=== PATIENT | female | born 1995 | race Caucasian/White ===

== ENCOUNTER 2017-02-20 14:15 | Emergency (ER) | payer OTHER ==
[2017-02-20 16:32] VITALS: BP 106/70
[2017-02-20] MEDS: NS 0.9% 1000 ML* 2,000 ML IV ONE (17:47)
[2017-02-20 18:00] LABS: Hematocrit 35 % (35-47); Hemoglobin 11.2 g/dl (12.0-16.0); Mean Corpuscular HGB Conc 32 g/dl (31-36); Mean Corpuscular Hemoglobin 27 pg (27-31); Mean Corpuscular Volume 85 fL (80-97); Mean Platelet Volume 8 um3 (7.4-10.4); Red Blood Count 4.16 10^6/ul (4.0-5.4); Red Cell Distribution Width 15 % (10.5-15); White Blood Count 12.3 10^3/ul (3.5-10.8)
[2017-02-20 18:10] LABS: ALT 12 U/L (7-52); AST 14 U/L (13-39); Albumin 3.6 g/dL (3.2-5.2); Alkaline Phosphatase 76 U/L (34-104); Anion Gap 6 mmol/L (2-11); BUN/Creatinine Ratio 10.8 (8-20); Blood Urea Nitrogen 8 mg/dL (6-24); C Reactive Protein 82.42 mg/L (< 5.00); CO2 Carbon Dioxide 28 mmol/L (22-32); Calcium 8.8 mg/dL (8.6-10.3); Chloride 103 mmol/L (101-111); EGFR Non-African American 101.1 (>60); Globulin 3.4 g/dL (2-4); Glucose 94 mg/dL (70-100); Potassium 4.1 mmol/L (3.5-5.0); Sodium 137 mmol/L (133-145)
[2017-02-20] MEDS ORDERED: Amoxicillin/Clavulanate TAB* 875 MG PO ONE ×2 (19:41→19:42)
[2017-02-20] MEDS ORDERED: cefTRIAXone(*) 1 GM in NS 0.9% 50 ML* 50 ML IVPB ONE (19:41)
[2017-02-20] MEDS ORDERED: Acetaminophen TAB* 325 MG PO ONE (19:41)
[2017-02-20 19:46] LABS: TSH (Thyroid Stimulating Horm) 1.59 mcIU/mL (0.34-5.60)
--- NOTE | 2017-02-20 19:56 | ED ---
Steph Jung Erika, scribed for Syed Wei MD on 02/20/17 at 1702 . Dizziness - HPI Summary HPI Summary: Patient is a 21-year-old female presenting to the ED with a CC of lightheadedness. Patient reports that she developed intermittent fevers, chills , fatigue, and headache on 02/17/2017. She describes the headache as dull and a 4/10, and states it is located diffusely. Patient reports that she has intermittently felt lightheaded, and states she has sometimes been unable to focus her vision. Patient states that dizziness is worse at night. She reports fever has been improving with Tylenol, which she most recently took at noon today. She notes she has been drinking well, and does not believe she is dehydrated. Patient denies nasal discharge, ear ache, sore throat, sinus pressure, cough, chest congestion, neck pain, nausea, abdominal pain, diarrhea, and urinary symptoms. Patient reports that she was sent to the ED from [facility] because her heart rate increased when she stood up. LNMP 02/02/2017. Pt denies vaginal discharge, and states she is not worried about STIs. She also denies rashes or known tick bites. Pt takes citalopram. - History Of Current Complaint Chief Complaint: EDGeneral Stated Complaint: FEVER , Time Seen by Provider: 02/20/17 16:51 Hx Obtained From: Patient Onset/Duration: Still Present Timing: Intermittent Episode Lasting - minutes Severity Currently: Mild Character: Lightheaded Associated Signs And Symptoms: Positive: Visual Changes, Fever, Chills, Other: - fatigue, headache. Negative: Nausea, Vomiting, Diarrhea - Allergies/Home Medications Allergies/Adverse Reactions: Allergies Allergy/AdvReac Type Severity Reaction Status Date / Time Lactose Allergy GI Upset Verified 02/20/17 17:48 PMH/Surg Hx/FS Hx/Imm Hx Endocrine/Hematology History: Denies: Hx Diabetes Cardiovascular History: Denies: Hx Hypertension Infectious Disease History: No Infectious Disease History: Denies: Traveled Outside the [place] in Last 30 Days - Family History Known Family History: Positive: Hypertension, Diabetes - Social History Occupation: Student Lives: With Family Alcohol Use: None Hx Substance Use: No Substance Use Type: Reports: None Hx Tobacco Use: No Smoking Status (MU): Never Smoked Tobacco Review of Systems Positive: Fever, Chills, Fatigue Positive: Blurred Vision Negative: Sore Throat, Ear Ache, Nasal Discharge Negative: Cough Negative: Abdominal Pain, Diarrhea, Nausea Negative: dysuria, discharge, frequency Negative: Rash Neurological: Other - lightheadedness Positive: Headache All Other Systems Reviewed And Are Negative: Yes Physical Exam Triage Information Reviewed: Yes Vital Signs On Initial Exam: Initial Vitals Temp Pulse Resp BP Pulse Ox 98.2 F 111 20 114/57 98 02/20/17 14:24 02/20/17 14:24 02/20/17 14:24 02/20/17 14:24 02/20/17 14:24 Vital Signs Reviewed: Yes Appearance: Positive: Well-Appearing, No Pain Distress Skin: Positive: Warm, Skin Color Reflects Adequate Perfusion, Dry Head/Face: Positive: Normal Head/Face Inspection Eyes: Positive: EOMI, KELLEN ENT: Positive: Normal ENT inspection Neck: Positive: Supple, Nontender Respiratory/Lung Sounds: Positive: Clear to Auscultation, Breath Sounds Present Cardiovascular: Positive: Tachycardia - at 111 bpm on triage Abdomen Description: Positive: Nontender, Soft Bowel Sounds: Positive: Present Musculoskeletal: Positive: Normal, Strength/ROM Intact Neurological: Positive: Normal, Sensory/Motor Intact, Alert, Oriented to Person Place, Time Psychiatric: Positive: Affect/Mood Appropriate - Sara Coma Scale Coma Scale Total: 15 Diagnostics - Vital Signs Vital Signs Temp Pulse Resp BP Pulse Ox 02/20/17 16:31 110 99/61 02/20/17 16:25 99.8 F 90 14 101/61 97 02/20/17 14:24 98.2 F 111 20 114/57 98 - Laboratory Lab Results: Lab Results 02/20/17 02/20/17 02/20/17 Range/Units 17:45 17:45 17:45 WBC 12.3 H (3.5-10.8) 10^3/ul RBC 4.16 (4.0-5.4) 10^6/ul Hgb 11.2 L (12.0-16.0) g/dl Hct 35 (35-47) % MCV 85 (80-97) fL MCH 27 (27-31) pg MCHC 32 (31-36) g/dl RDW 15 (10.5-15) % Plt Count 366 (150-450) 10^3/ul MPV 8 (7.4-10.4) um3 Neut % (Auto) 66.0 (38-83) % Lymph % (Auto) 20.1 L (25-47) % Mckean % (Auto) 12.2 H (1-9) % Eos % (Auto) 0.9 (0-6) % Baso % (Auto) 0.8 (0-2) % Absolute Neuts (auto) 8.1 H (1.5-7.7) 10^3/ul Absolute Lymphs (auto) 2.5 (1.0-4.8) 10^3/ul Absolute Monos (auto) 1.5 H (0-0.8) 10^3/ul Absolute Eos (auto) 0.1 (0-0.6) 10^3/ul Absolute Basos (auto) 0.1 (0-0.2) 10^3/ul Absolute Nucleated RBC 0 10^3/ul Nucleated RBC % 0 Sodium 137 (133-145) mmol/L Potassium 4.1 (3.5-5.0) mmol/L Chloride 103 (101-111) mmol/L Carbon Dioxide 28 (22-32) mmol/L Anion Gap 6 (2-11) mmol/L BUN 8 (6-24) mg/dL Creatinine 0.74 (0.51-0.95) mg/dL Est GFR ( Amer) 130.0 (>60) Est GFR (Non-Af Amer) 101.1 (>60) BUN/Creatinine Ratio 10.8 (8-20) Glucose 94 (70-100) mg/dL Lactic Acid 0.7 (0.5-2.0) mmol/L Calcium 8.8 (8.6-10.3) mg/dL Total Bilirubin 0.40 (0.2-1.0) mg/dL AST 14 (13-39) U/L ALT 12 (7-52) U/L Alkaline Phosphatase 76 (34-104) U/L C-Reactive Protein 82.42 H (< 5.00) mg/L Total Protein 7.0 (6.4-8.9) g/dL Albumin 3.6 (3.2-5.2) g/dL Globulin 3.4 (2-4) g/dL Albumin/Globulin Ratio 1.1 (1-3) TSH 1.59 (0.34-5.60) mcIU/mL Beta HCG, Quant < 0.60 mIU/mL Result Diagrams: 02/20/17 17:45 02/20/17 17:45 Lab Statement: Any lab studies that have been ordered have been reviewed, and results considered in the medical decision making process. Re-Evaluation - Re-Evaluation First Eval Re-Evaluation Time: 19:29 Change: Improved Comment: Discussed all results Dizzy Course/Dx - Course Course Of Treatment: NO CRITICAL CARE TIME Assessment/Plan: WELL IN ED. NO MENINGISMUS SIGNS. NECK SUPPLE/FROM/NON TENDER. WITH THE SIGNS OF HEADACHE, FEVER AND DIZZINESS, WILL TREAT FOR POSSIBLE SINUSITIS WITH AUGMENTIN. ASKED PATIENT TO RETURN TO THE EMERGENCY DEPARTMENT FOR ANY WORSENING OF HER SX OR ANY QUESTIONS OR CONCERNS. DISCHARGE HOME STABLE. - Diagnoses Provider Diagnoses: Headache, Fever Discharge - Discharge Plan Condition: Stable Disposition: HOME Prescriptions: Amoxicillin/Clavulanate TAB* [Augmentin TAB 875*] 875 mg PO BID #18 tab Patient Education Materials: Acute Headache (ED), Fever in Adults (ED), Dizziness (ED) Referrals: [facility] [Primary Care Provider] - Additional Instructions: FOLLOW UP WITH [facility]. RETURN TO THE EMERGENCY DEPARTMENT FOR ANY WORSENING OF YOUR CONDITION; WORSENING OR PERSISTENT HEADACHE, VOMITING, NECK PAIN, YOU FEEL ILL, WEAKNESS, NUMBNESS OR QUESTIONS OR CONCERNS. The documentation as recorded by the Steph martinez Erika accurately reflects the service I personally performed and the decisions made by me, Syed Wei MD.
== END 2017-02-20 20:34 | disposition home or self-care (01) ==
LOC: ED 14:15
DX: R51 Headache (principal); R50.9 Fever, unspecified; R42 Dizziness and giddiness; R53.83 Other fatigue; H53.8 Other visual disturbances
CPT/HCPCS: 36415; 80053; 83605; 84443; 84702; 85025; 86140; 96360; 99283; A9270-GY; J0696